=== PATIENT | male | born 1965 | race Caucasian/White ===

== ENCOUNTER 2018-02-04 18:48 | Emergency (ER) | payer BC ==
[2018-02-04 19:01] VITALS: TEMP 97.7
[2018-02-04] MEDS ORDERED: MORPHINE SULFATE 4 MG/ML SYRINGE IVP STA ×2 (19:44→20:39)
[2018-02-04 20:19] LABS: Basophils # (A) 0.1 k/uL (0-0.2); Basophils % (A) 0 %; Eosinophils # (A) 0.1 k/uL (0-0.7); Eosinophils % (A) 1 %; HCT 48.8 % (39.0-53.0); HGB 16.5 gm/dL (13.0-17.5); Lymphocytes # (A) 1.3 k/uL (1.0-4.8); Lymphocytes % (A) 11 %; MCH 29.4 pg (25.0-35.0); MCHC 33.8 g/dL (31.0-37.0); MCV 87.1 fL (80.0-100.0); Mean Platelet Volume 7.4; Monocytes # (A) 0.5 k/uL (0-1.0); Monocytes % (A) 4 %; Neutrophils # (A) 10.3 k/uL (1.3-7.7); Neutrophils % (A) 82 %; Platelet Count 335 k/uL (150-450); RDW 13.9 % (11.5-15.5); WBC 12.6 k/uL (3.8-10.6)
[2018-02-04 20:25] LABS: ALT 44 U/L (21-72); AST 28 U/L (17-59); Alkaline Phosphatase 125 U/L (38-126); Anion Gap 9 mmol/L; Blood Urea Nitrogen 21 mg/dL (9-20); Calcium 9.6 mg/dL (8.4-10.2); Carbon Dioxide 25 mmol/L (22-30); Chloride 106 mmol/L (98-107); Glucose 146 mg/dL (74-99); Potassium 4.3 mmol/L (3.5-5.1); Sodium 140 mmol/L (137-145); Total Bilirubin 0.4 mg/dL (0.2-1.3); Total Protein 7.3 g/dL (6.3-8.2)
--- NOTE | 2018-02-04 20:34 | XR ---
EXAMINATION TYPE: XR knee complete RT DATE OF EXAM: 02/04/2018 COMPARISON: NONE HISTORY: Knee pain TECHNIQUE: 3 views FINDINGS: I see no fracture nor dislocation. There is soft tissue swelling anterior to the patella. T here is no sign of joint effusion. Joint spaces are fairly normal. IMPRESSION: Anterior soft tissue swelling. No fracture seen.
--- NOTE | 2018-02-04 20:36 | XR ---
EXAMINATION TYPE: XR Hip RT and AP Pelvis DATE OF EXAM: 02/04/2018 COMPARISON: NONE HISTORY: Right hip pain after falling TECHNIQUE: A single AP view of the pelvis is obtained. Two views of the right hip are obtained. FINDINGS: The pelvic ring is intact. There is bilateral acetabular spurring and femoral head spur for mation. I see no fracture. There is no evidence of a fracture. Sacroiliac joints are intact. IMPRESSION: Osteoarthritis in the right hip joint. No fracture.
--- NOTE | 2018-02-04 21:08 | CT ---
EXAMINATION TYPE: CT angio lower extremity RT DATE OF EXAM: 02/04/2018 8:58 PM COMPARISON: HISTORY: right leg pain following fall CT DLP: 1796 mGycm Automated exposure control for dose reduction was used. TECHNIQUE: Performed with IV Contrast, patient injected with 100 mL of Isovue 370. Multiple axial sections were obtained from the level of the mid kidneys to the bottom of the right fo ot with intravenous contrast. There are 3-D post processed images.. FINDINGS: The abdominal aorta has normal size. There is wide patency of the right common internal and external iliac artery. There is wide patency of the right femoral artery. There is patency of the femoral mitchel ry and the profunda femoris artery. There is patency of the right popliteal artery. There is tibial a rtery patency. There is patency of the tibial artery trifurcation. There is arterial flow in the posterior tibial artery at the ankle. There is very little contrast see n in the anterior tibial artery at the ankle. I see no contrast extravasation. There is no evidence o f aneurysm or neovascularity. I see no pathologic fluid collection. There is no evidence of a soft ti ssue mass. There is hypertrophic osteoarthritis in the hip joints. The knee joints appear intact. IMPRESSION: NEGATIVE CT ANGIOGRAM OF THE RIGHT LEG. NO EVIDENCE OF HEMODYNAMIC STENOSIS.
[2018-02-04] MEDS ORDERED: HYDROmorphone 1 MG/ML 1 ML SYRINGE IVP STA (21:11)
[2018-02-04 21:20] VITALS: BP 142/81; PULSE 94; RESP 18
--- NOTE | 2018-02-04 21:47 | ED ---
Lower Extremity Injury HPI - General Chief Complaint: Extremity Injury, Lower Stated Complaint: poss right leg Fx Time Seen by Provider: 02/04/18 19:15 Source: patient Mode of arrival: ambulatory Limitations: no limitations - Related Data Previous Rx's Medication Instructions Recorded HYDROcodone/APAP 7.5-325MG [Mcdermitt 1 tab PO Q4H PRN 3 Days #18 tab 02/04/18 7.5-325] Ibuprofen 800 mg PO Q8H PRN 7 Days #21 tablet 02/04/18 Allergies Allergy/AdvReac Type Severity Reaction Status Date / Time No Known Allergies Allergy Verified 02/04/18 19:02 Review of Systems ROS Statement: Those systems with pertinent positive or pertinent negative responses have been documented in the HPI. ROS Other: All systems not noted in ROS Statement are negative. Past Medical History Past Medical History: Thyroid Disorder Additional Past Medical History / Comment(s): Parkinson's History of Any Multi-Drug Resistant Organisms: None Reported Past Surgical History: Appendectomy, Cholecystectomy, Hernia Repair Additional Past Surgical History / Comment(s): Vesectomy Past Psychological History: No Psychological Hx Reported Smoking Status: Never smoker Past Alcohol Use History: None Reported Past Drug Use History: None Reported General Exam - General Exam Comments Initial Comments: General: The patient is awake and alert, in no distress, and does not appear acutely ill. Eye: Pupils are equal, round and reactive to light, extra-ocular movements are intact. No nystagmus. There is normal conjunctiva bilaterally. No signs of icterus. Ears, nose, mouth and throat: There are moist mucous membranes and no oral lesions. Neck: The neck is supple, there is no tenderness or JVD. Cardiovascular: There is a regular rate and rhythm. No murmur, rub or gallop is appreciated. Respiratory: Lungs are clear to auscultation, respirations are non-labored, breath sounds are equal. No wheezes, stridor, rales, or rhonchi. Gastrointestinal: [Soft, non-distended, non-tender abdomen without masses or organomegaly noted. There is no rebound or guarding present. No CVA tenderness. Bowel sounds are unremarkable.] Musculoskeletal: Normal ROM, no tenderness. Strength 5/5. Sensation intact. Pulses equal bilaterally 2+. Neurological: A&O x 3. CN II-XII intact, There are no obvious motor or sensory deficits. Coordination appears grossly intact. Speech is normal. Skin: Skin is warm and dry and no rashes or lesions are noted. Psychiatric: Cooperative, appropriate mood & affect, normal judgment. Limitations: no limitations Course Vital Signs 02/04/18 02/04/18 18:58 21:17 Temperature 97.7 F Pulse Rate 98 94 Respiratory 20 18 Rate Blood Pressure 159/90 142/81 O2 Sat by Pulse 97 99 Oximetry Medical Decision Making - Lab Data Result diagrams: 02/04/18 19:50 02/04/18 19:50 Lab Results 02/04/18 02/04/18 Range/Units 19:50 19:50 WBC 12.6 H (3.8-10.6) k/uL RBC 5.60 (4.30-5.90) m/uL Hgb 16.5 (13.0-17.5) gm/dL Hct 48.8 (39.0-53.0) % MCV 87.1 (80.0-100.0) fL MCH 29.4 (25.0-35.0) pg MCHC 33.8 (31.0-37.0) g/dL RDW 13.9 (11.5-15.5) % Plt Count 335 (150-450) k/uL Neutrophils % 82 % Lymphocytes % 11 % Monocytes % 4 % Eosinophils % 1 % Basophils % 0 % Neutrophils # 10.3 H (1.3-7.7) k/uL Lymphocytes # 1.3 (1.0-4.8) k/uL Monocytes # 0.5 (0-1.0) k/uL Eosinophils # 0.1 (0-0.7) k/uL Basophils # 0.1 (0-0.2) k/uL Sodium 140 (137-145) mmol/L Potassium 4.3 (3.5-5.1) mmol/L Chloride 106 (98-107) mmol/L Carbon Dioxide 25 (22-30) mmol/L Anion Gap 9 mmol/L BUN 21 H (9-20) mg/dL Creatinine 0.87 (0.66-1.25) mg/dL Est GFR (CKD-EPI)AfAm >90 (>60 ml/min/1.73 sqM) Est GFR (CKD-EPI)NonAf >90 (>60 ml/min/1.73 sqM) Glucose 146 H (74-99) mg/dL Calcium 9.6 (8.4-10.2) mg/dL Total Bilirubin 0.4 (0.2-1.3) mg/dL AST 28 (17-59) U/L ALT 44 (21-72) U/L Alkaline Phosphatase 125 (38-126) U/L Total Protein 7.3 (6.3-8.2) g/dL Albumin 4.0 (3.5-5.0) g/dL Disposition Clinical Impression: Pain and swelling of right knee, Right knee injury Disposition: HOME SELF-CARE Condition: Good Instructions: Knee Pain (ED), R.I.C.E. Treatment (ED) Additional Instructions: Please use medication as discussed, no driving, operating machinery, working under the influence of Mcdermitt-disease medication only as discussed. Please follow-up with family doctor in the next 2 days as follow-up with orthopedic surgery within the next 2-3 days. These use knee immobilizer while ambulating as well as crutches. Please return to emergency room if the symptoms increase or worsen or for any other concerns, as discussed. Prescriptions: HYDROcodone/APAP 7.5-325MG [[place] 7.5-325] 1 tab PO Q4H PRN 3 Days #18 tab PRN Reason: Severe Pain Ibuprofen 800 mg PO Q8H PRN 7 Days #21 tablet PRN Reason: Pain Is patient prescribed a controlled substance at d/c from ED?: No Referrals: Nonstaff,Physician [Primary Care Provider] - 1-2 days Ned Smith PAC [PHYSICIAN AIX ADMINISTRATOR] - 1-2 days Time of Disposition: 21:47
--- NOTE | 2018-02-04 22:25 | XR ---
EXAMINATION TYPE: XR ankle complete RT DATE OF EXAM: 02/04/2018 COMPARISON: NONE HISTORY: Pain TECHNIQUE: 3 views FINDINGS: Ankle mortise is anatomic. I see no fracture nor dislocation. There are plantar and Ana Cristina s calcaneal spurs. IMPRESSION: Calcaneal spurring. No fracture seen.
--- NOTE | 2018-02-04 22:26 | XR ---
EXAMINATION TYPE: XR foot complete RT DATE OF EXAM: 02/04/2018 COMPARISON: NONE HISTORY: Foot pain TECHNIQUE: 3 views FINDINGS: There is a plantar calcaneal spur. There are small Achilles calcaneal spur. Metatarsals are intact. I see no fracture nor dislocation. There are no erosions. IMPRESSION: Calcaneal spurring. No fracture seen.
== END 2018-02-04 22:45 | disposition home or self-care (01) ==
LOC: EC 18:48
DX: S89.91XA Unspecified injury of right lower leg, initial encounter (principal); W17.89XA Other fall from one level to another, initial encounter; Y92.008 Other place in unspecified non-institutional (private) residence as the place of occurrence of the external cause
CPT/HCPCS: 36415; 80053; 85025; 73502; 73562; 73610; 73630; 73706; 99284; 96374; 96375; 96376; J2270; J1170; Q9967